=== PATIENT | female | born 1970 ===

== ENCOUNTER 2024-03-08 05:30 | Day surgery (SDC) | payer OTHER ==
[2024-03-06 08:25] LABS: HEMATOCRIT 38.4 % (36.0-45.00); HEMOGLOBIN 13.3 g/dL (12.0-15.00); MEAN CELL VOLUME 87.8 fL (80.00-100.00); MEAN CORPUSCULAR HEMOGLOBIN 30.4 pg (27.00-32.0); MEAN CORPUSCULAR HGB CONC 34.7 g/dl (32.0-36.0); PLATELET COUNT 229 K/uL (150-450); RED BLOOD COUNT 4.38 M/uL (4.00-6.00)
[2024-03-06 08:56] LABS: INR 0.97; PARTIAL THROMBOPLASTIN TIME 26.8 SECONDS (22.0-34.0); PROTHROMBIN TIME 10.6 SECONDS (9.0-11.5)
[2024-03-06 08:58] LABS: ALBUMIN 3.6 gm/dL (3.4-5.0); BILIRUBIN TOTAL 0.5 mg/dL (0.3-1.2); CALCIUM 9.1 mg/dL (8.5-10.1); CREATININE SERUM 0.59 mg/dL (0.55-1.02); GFR 105.82; GLOBULINA 3.1 G/DL (2.4-3.5); POTASSIUM 4.39 mEq/L (3.5-5.1); TOTAL PROTEIN 6.7 gm/dL (6.4-8.2)
[~2024-03-08 05:30] MED LIST: LOSARTAN-HCTZ1 EACH
[2024-03-08] MEDS ORDERED: POVIDONE-IODINE 118 ML BOTT TOP ONE (09:00)
== END 2024-03-08 13:35 | disposition home or self-care (01) ==
LOC: CIR.AMB 05:30
PROVIDERS: ATTEND Obstetrics & Gynecology Maternal & Fetal Medicine
DX: N84.0 Polyp of corpus uteri (principal)